=== PATIENT | female | born 1995 | race Caucasian/White ===

== ENCOUNTER → 2020-11-14 10:56 | Outpatient (BNVA) | payer OTHER, SELFPAY | PROVIDERS: Visit Provider Family Medicine | DX: Z13.6 Encounter for screening for cardiovascular disorders (principal); N94.12 Deep dyspareunia | CPT/HCPCS: 80053; 80061; 85025 ==

== ENCOUNTER → 2020-12-20 00:01 | Outpatient (BNVA) | payer OTHER, SELFPAY | PROVIDERS: PCP Family Medicine; Visit Provider Nurse Practitioner Women's Health | DX: Z12.4 Encounter for screening for malignant neoplasm of cervix (principal) | CPT/HCPCS: 88175 ==

== ENCOUNTER → 2023-09-06 08:39 | Outpatient (BNVA) | payer OTHER, SELFPAY | PROVIDERS: PCP Family Medicine; Visit Provider Nurse Practitioner Women's Health | DX: Z32.01 Encounter for pregnancy test, result positive (principal) | CPT/HCPCS: 81025 ==

== ENCOUNTER → 2023-10-16 11:05 | Outpatient (BNVA) | payer OTHER, SELFPAY | PROVIDERS: PCP Family Medicine; Visit Provider Obstetrics & Gynecology | DX: Z34.91 Encounter for supervision of normal pregnancy, unspecified, first trimester (principal); Z3A.09 9 weeks gestation of pregnancy | CPT/HCPCS: 76801 ==

== ENCOUNTER → 2023-10-25 12:36 | Outpatient (BNVA) | payer OTHER, SELFPAY | PROVIDERS: PCP Family Medicine; Visit Provider Obstetrics & Gynecology | DX: Z34.90 Encounter for supervision of normal pregnancy, unspecified, unspecified trimester (principal); Z3A.00 Weeks of gestation of pregnancy not specified | CPT/HCPCS: 80307; 84315; 85025; 86592; 86762; 86803; 86850; 86900; 87086; 87340; 87806 ==

== ENCOUNTER → 2023-11-08 14:00 | Outpatient (BNVA) | payer OTHER, SELFPAY | PROVIDERS: PCP Family Medicine; Visit Provider Obstetrics & Gynecology | DX: Z34.02 Encounter for supervision of normal first pregnancy, second trimester (principal) | CPT/HCPCS: 82950; 84315; 87491; 87591; 88175 ==

== ENCOUNTER → 2023-12-09 08:29 | Outpatient (BNVA) | payer OTHER, SELFPAY | PROVIDERS: PCP Family Medicine; Visit Provider Obstetrics & Gynecology | DX: O99.810 Abnormal glucose complicating pregnancy (principal); Z3A.00 Weeks of gestation of pregnancy not specified | CPT/HCPCS: 82951; 82952 ==

== ENCOUNTER → 2023-12-26 09:15 | Outpatient (BNVA) | payer OTHER, SELFPAY | PROVIDERS: PCP Family Medicine; Visit Provider Obstetrics & Gynecology | DX: Z34.02 Encounter for supervision of normal first pregnancy, second trimester (principal); Z3A.00 Weeks of gestation of pregnancy not specified | CPT/HCPCS: 76805 ==

== ENCOUNTER → 2024-01-21 15:30 | Outpatient (BNVA) | payer OTHER, SELFPAY | PROVIDERS: PCP Family Medicine; Visit Provider Obstetrics & Gynecology | DX: Z34.92 Encounter for supervision of normal pregnancy, unspecified, second trimester (principal); Z3A.24 24 weeks gestation of pregnancy | CPT/HCPCS: 76816 ==

== ENCOUNTER → 2024-01-24 07:44 | Outpatient (BNVA) | payer OTHER, SELFPAY | PROVIDERS: PCP Family Medicine; Visit Provider Nurse Practitioner Women's Health | DX: Z34.02 Encounter for supervision of normal first pregnancy, second trimester (principal); Z3A.00 Weeks of gestation of pregnancy not specified | CPT/HCPCS: 82950; 84315 ==

== ENCOUNTER → 2024-02-21 07:47 | Outpatient (BNVA) | payer OTHER, SELFPAY | PROVIDERS: PCP Family Medicine; Visit Provider Obstetrics & Gynecology | DX: O26.892 Other specified pregnancy related conditions, second trimester (principal); Z3A.00 Weeks of gestation of pregnancy not specified; Z67.91 Unspecified blood type, Rh negative | CPT/HCPCS: 84315; 85025; 86850 ==

== ENCOUNTER → 2024-04-03 08:12 | Outpatient (BNVA) | payer OTHER, SELFPAY | PROVIDERS: PCP Family Medicine; Visit Provider Nurse Practitioner Women's Health | DX: Z34.02 Encounter for supervision of normal first pregnancy, second trimester (principal); Z3A.00 Weeks of gestation of pregnancy not specified; R00.0 Tachycardia, unspecified | CPT/HCPCS: 84315; 84443; 85025 ==

== ENCOUNTER → 2024-04-17 07:54 | Outpatient (BNVA) | payer OTHER, SELFPAY | PROVIDERS: PCP Family Medicine; Visit Provider Obstetrics & Gynecology | DX: Z34.02 Encounter for supervision of normal first pregnancy, second trimester (principal); Z3A.00 Weeks of gestation of pregnancy not specified | CPT/HCPCS: 84315; 87081 ==

== ENCOUNTER → 2024-04-24 09:00 | Outpatient (BNVA) | payer OTHER, SELFPAY | PROVIDERS: PCP Family Medicine; Visit Provider Obstetrics & Gynecology | DX: Z34.90 Encounter for supervision of normal pregnancy, unspecified, unspecified trimester (principal); Z3A.00 Weeks of gestation of pregnancy not specified | CPT/HCPCS: 81000 ==

== ENCOUNTER → 2024-05-08 08:30 | Outpatient (BNVA) | payer OTHER, SELFPAY | PROVIDERS: PCP Family Medicine; Visit Provider Obstetrics & Gynecology | DX: Z34.90 Encounter for supervision of normal pregnancy, unspecified, unspecified trimester (principal); Z3A.00 Weeks of gestation of pregnancy not specified | CPT/HCPCS: 81000 ==

== ENCOUNTER 2024-05-14 17:11 | Inpatient (IN) | payer OTHER, SELFPAY ==
[2024-05-14] VITALS (17 sets, daily range): BP systolic 111–152; BP diastolic 55–81; PULSE 71–91; BMI 39.7
[2024-05-14 18:03] LABS: Basophils % 0.3 %; Eosinophils # 0.1 10^3/uL (0.0-0.8); Hematocrit 33.7 % (36-47); Lymphocytes # 0.9 10^3/uL (0.8-4.8); Lymphocytes % 13.7 %; Mean Corpuscular HGB Conc 33.5 g/dL (30-55); Mean Corpuscular Hemoglobin 27.4 pg (27-33); Mean Corpuscular Volume 81.8 fl (85-98); Mean Platelet Volume 10.8 fL (7.4-10.4); Monocytes # 0.7 10^3/uL (0.2-0.9); Monocytes % 10.8 %; Neutrophils # 4.63 10^3/uL (1.8-7.7); Neutrophils % 73.9 %; Nucleated Red Blood Cells % 0 %; Platelet Count 218 10^3/cmm (157-399); Red Blood Count 4.12 10^6/uL (3.85-5.65); Red Cell Distribution Width 13.5 % (12.1-15.1); White Blood Count 6.27 10^3/uL (3.29-11.43)
[2024-05-14] MEDS: miSOPROStol 100 mcg tablet 25 MCG VAGINAL (18:32)
[2024-05-14] MEDS: ampicillin 2,000 MG in sodium chloride 0.9% (plus) 50 ML 100 MG IV (19:23)
[2024-05-14] MEDS: dextrose 5%-lactated ringers 1,000 ML 125 ML IV (19:23)
[2024-05-14] MEDS: ampicillin 1,000 MG in sodium chloride 0.9% (plus) 50 ML 100 MG IV (23:46)
[2024-05-15] VITALS (77 sets, daily range): BP systolic 96–140; BP diastolic 53–85; PULSE 64–96; RESP 16–18; TEMP 36.7; O2SAT 100
[2024-05-15] MEDS: miSOPROStol 100 mcg tablet 25 MCG VAGINAL ×2 (00:43→06:07)
[2024-05-15] MEDS: ampicillin 1,000 MG in sodium chloride 0.9% (plus) 50 ML 100 MG IV ×5 (04:07→20:30)
[2024-05-15] MEDS: dextrose 5%-lactated ringers 1,000 ML 125 ML IV ×3 (07:52→21:00)
--- NOTE | 2024-05-15 10:50 | PM.OPHPUD ---
Labor & Delivery H&P Update Date of Procedure: May 15, 2024 Date H&P Performed: 05/08/24 H&P update information: I have reviewed H&P completed within last 30 days, I have examined patient prior to procedure and No changes to prior documentation Admission Diagnosis:
[2024-05-15] MEDS: oxytocin 30 UNIT/500 ML BAG IV (12:36)
--- NOTE | 2024-05-15 17:30 | ANES.PROC ---
Anesthesia Procedures Procedure/Date: 05/15/24 Epidural: Time Out Performed: Yes Consents Signed: Procedure Consent Consent: from patient, risks and benefits reviewed and patient agrees to proceed Lumbar Level: L3-L4 Epidural position: sitting Epidural procedure: sterile prep of area, 1% lidocaine to numb the area, 18 g needle, negative for paresthesia passed, neg for paresthesia, test dose given, 1.5% xylocaine 1:200k epi, placed PCEA, no systemic response, sterile dressing applied, L.U.D. no apparent complications and 0.2% Ropiavacaine @ mls/hr (13) Additional Comments: DIONISIO at 6, negative aspiration. taped at 12 at skin.
--- NOTE | 2024-05-15 19:40 | PM.OBGYPN ---
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 EFM- Cat 1. Will exam and AROM soon. Labor: Station: -2 Amniotic Membrane Status: Intact Monitor Mode: External Contraction Pattern: Regular Vitals/I&O/Wt Last Vital Signs Temp 98.0 F 05/15/24 08:00 Pulse 71 05/15/24 19:22 Resp 18 05/15/24 08:00 BP 119/68 05/15/24 19:22 Pulse Ox 100 05/15/24 17:36 O2 Del Method Room Air 05/14/24 17:54 05/15/24 05/15/24 05/15/24 06:59 14:59 22:59 Intake Total 1100 / 1100 699.967 / 699.967 3.5 / 703.467 Balance 1100 / 1100 699.967 / 699.967 3.5 / 703.467 Weight last 48 hrs Weight 108.409 kg Data 05/14/24 17:45 A&P Assessment and plan (1) Supervision of normal first : Continue care, AROM soon. Qualifiers: Trimester: second trimester Qualified Code(s): Z34.02 - Encounter for supervision of normal first , second trimester (2) Rh negative status during : Qualifiers: Trimester: second trimester Qualified Code(s): O26.892 - Other specified related conditions, second trimester; Z67.91 - Unspecified blood type, Rh negative (3) Abnormal glucose tolerance affecting , antepartum: (4) Tachycardia: Attestations Medical Necessity Statement*: Labor management Coding Level of Care Code Acute Code for Chg Fwd Diagnoses Encounter for supervision of normal first in second trimester Z34.02 Trimester: second trimester Rh negative status during in second trimester O26.892; Z67.91 Trimester: second trimester Abnormal glucose tolerance affecting , antepartum O99.810 Tachycardia R00.0
--- NOTE | 2024-05-15 20:04 | P.PN_ITS ---
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 AROM with clear fluid noted. EFM?category 1. Pitocin currently at 12 milliunits will continue to increase as long as tolerated by the baby based on EFM. Labor: Station: -2 Amniotic Membrane Status: Intact Monitor Mode: External Contraction Pattern: Regular Vitals/I&O/Wt Last Vital Signs Temp 98.0 F 05/15/24 08:00 Pulse 71 05/15/24 19:22 Resp 18 05/15/24 08:00 BP 119/68 05/15/24 19:22 Pulse Ox 100 05/15/24 17:36 O2 Del Method Room Air 05/14/24 17:54 05/15/24 05/15/24 05/15/24 06:59 14:59 22:59 Intake Total 1100 / 1100 699.967 / 699.967 3.5 / 703.467 Balance 1100 / 1100 699.967 / 699.967 3.5 / 703.467 Weight last 48 hrs Weight 108.409 kg Data 05/14/24 17:45 A&P Assessment and plan (1) 40 weeks gestation of : (2) Tachycardia: (3) Abnormal glucose tolerance affecting , antepartum: (4) Rh negative status during : Qualifiers: Trimester: second trimester Qualified Code(s): O26.892 - Other specified related conditions, second trimester; Z67.91 - Unspecified blood type, Rh negative (5) Supervision of normal first : Qualifiers: Trimester: second trimester Qualified Code(s): Z34.02 - Encounter for supervision of normal first , second trimester Plan Continue present care. Attestations 2 Medical Necessity Statement*: Management of labor Coding Level of Care Code Acute Code for Chg Fwd Diagnoses 40 weeks gestation of Z3A.40 Tachycardia R00.0 Abnormal glucose tolerance affecting , antepartum O99.810 Rh negative status during in second trimester O26.892; Z67.91 Trimester: second trimester Encounter for supervision of normal first in second trimester Z34.02 Trimester: second trimester
[2024-05-15] MEDS: ROPivacaine syringe 100 MG/50 ML SYRINGE 13 MG EPIDURAL (21:09)
--- NOTE | 2024-05-15 23:49 | P.PN_ITS ---
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 Cx- Ant Lip/-1 EFM- Cat 1 Ctx q 2-4 Labor: Station: 0 Amniotic Membrane Status: Intact Monitor Mode: E xternal Contraction Pattern: Regular Vitals/I&O/Wt Last Vital Signs Temp 98.0 F 05/15/24 19:59 Pulse 88 05/15/24 23:38 Resp 16 05/15/24 17:31 BP 99/57 05/15/24 23:38 Pulse Ox 100 05/15/24 17:36 O2 Del Method Room Air 05/14/24 17:54 05/15/24 05/15/24 05/16/24 14:59 22:59 06:59 Intake Total 699.967 / 699.967 653.5 / 1353.467 Balance 699.967 / 699.967 653.5 / 1353.467 Weight last 48 hrs Weight 108.409 kg Physical Exam 2 Urinary Catheter Management: Jameson: Cath Placed During This Visit: yes Urinary Catheter Date of Insertion: 05/15/24 Urinary Catheter Time of Insertion: 17:45 Data 05/14/24 17:45 A&P Assessment and plan (1) 40 weeks gestation of : (2) Abnormal glucose tolerance affecting , antepartum: (3) Rh negative status during : Qualifiers: Trimester: second trimester Qualified Code(s): O26.892 - Other specified related conditions, second trimester; Z67.91 - Unspecified blood type, Rh negative (4) Supervision of normal first : Qualifiers: Trimester: second trimester Qualified Code(s): Z34.02 - Encounter for supervision of normal first , second trimester Plan continue care Attestations 2 Medical Necessity Statement*: Labor management Coding Level of Care Code Acute Code for Chg Fwd Diagnoses 40 weeks gestation of Z3A.40 Abnormal glucose tolerance affecting , antepartum O99.810 Rh negative status during in second trimester O26.892; Z67.91 Trimester: second trimester Encounter for supervision of normal first in second trimester Z34.02 Trimester: second trimester
[2024-05-16] VITALS (45 sets, daily range): BP systolic 80–157; BP diastolic 57–83; PULSE 65–116; RESP 16–18; TEMP 36.6–36.8; O2SAT 94–100
[2024-05-16] MEDS: ampicillin 1,000 MG in sodium chloride 0.9% (plus) 50 ML 100 MG IV ×2 (01:00→06:17)
--- NOTE | 2024-05-16 01:58 | PC.NURSE ---
This RN titrated pitocin up at 0157 from 12mu/min to 14mu/minute. Pitocin was set at 12 mu/min when this RN received patient at shift change. Pitocin titration before shift change not documented.
[2024-05-16] MEDS: ROPivacaine syringe 100 MG/50 ML SYRINGE 13 MG EPIDURAL ×2 (02:15→05:48)
[2024-05-16] MEDS: dextrose 5%-lactated ringers 1,000 ML 125 ML IV ×2 (04:17→14:05)
--- NOTE | 2024-05-16 08:00 | ANE.PACU2 ---
Inpatient post-anesthesia follow up: Airway intact: Yes Vital signs: Temperature 98.2 F Pulse Rate 97 Respiratory Rate 17 Blood Pressure 124/73 Pulse Oximetry 96 Oxygen Delivery Me thod Room Air Oxygen Flow Rate 2 Fraction of Inspir ed Oxygen Hydration adequate: Yes Nausea and vomiting: No Pain level: 1 Mental status: Baseline Epidural Start/End: Epidural Start Date: 05/15/24 Epidural Start Time: 17:10 Epidural End Date: 05/16/24 Epidural End Time: 10:04
[2024-05-16] MEDS: lactated ringers 1,000 ML 999 ML IV (08:16)
--- NOTE | 2024-05-16 08:21 | P.PN_ITS ---
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 Exam indicates pt has narrow pelvis and moderate amount of perineal swelling. Discussed possible Forcep assisted delivery but increased risk of failure with her narrow pelvis and possible injury to baby, so I advise her of need to proceed with C/S delivery. Risk and benefits reviewed to include infection, bleeding and injury to pelvic organs, Pt and FOB understand and consents signed. Labor: Station: 0 Amniotic Membrane Status: Intact Monitor Mode: E xternal Contraction Pattern: Regular Vitals/I&O/Wt Last Vital Signs Temp 98.0 F 05/15/24 19:59 Pulse 73 05/16/24 08:06 Resp 16 05/15/24 17:31 BP 132/68 05/16/24 08:06 Pulse Ox 100 05/15/24 17:36 O2 Del Method Room Air 05/14/24 17:54 05/15/24 05/16/24 05/16/24 22:59 06:59 14:59 Intake Total 1703.5 / 2403.467 1148.017 / 3551.484 Balance 1703.5 / 2403.467 1148.017 / 3551.484 Weight last 48 hrs Weight 108.409 kg Physical Exam 2 Urinary Catheter Management: Jameson: Cath Placed During This Visit: yes Urinary Catheter Date of Insertion: 05/15/24 Urinary Catheter Time of Insertion: 17:45 Data 05/14/24 17:45 A&P Assessment and plan (1) 40 weeks gestation of : (2) Abnormal glucose tolerance affecting , antepartum: (3) Rh negative status during : Qualifiers: Trimester: second trimester Qualified Code(s): O26.892 - Other specified related conditions, second trimester; Z67.91 - Unspecified blood type, Rh negative Plan Proceed to delivery by c/section. Surgery crew called. Attestations 2 Medical Necessity Statement*: management of labor. Coding Level of Care Code Acute Code for Chg Fwd Diagnoses 40 weeks gestation of Z3A.40 Abnormal glucose tolerance affecting , antepartum O99.810 Rh negative status during in second trimester O26.892; Z67.91 Trimester: second trimester
[2024-05-16] MEDS: famotidine 20 mg/2 mL INJ IVP ×2 (08:26)
[2024-05-16] MEDS: metoclopramide 5 mg/mL SDV 2 mL 10 MG IV (08:26)
[2024-05-16] MEDS: ceFAZolin 2,000 MG in sodium chloride 0.9% (plus) 50 ML 100 MG IV (08:27)
[2024-05-16] MEDS: citric acid-sodium citrate 30 mL UDC PO (08:27)
--- NOTE | 2024-05-16 08:56 | P.ANESUD_ITS ---
Pre-Anesthetic Update Pre-Anesthetic Assessment: Date of Surgery/Procedure: 05/16/24 Preop Cindi gnosis: Failure to Progress Proposed Procedure: C. Section Any changes to Pre-Anesthetic Assessment?: No Labs Last 48hrs: Short CBC 05/14/24 Range/Units 17:45 WBC 6.27 (3.29-11.43) 10^ 3/uL Hgb 11.30 (11.27-16.99) g/ dL Hct 33.7 L (36-47) % MCV 81.8 L (85-98) fl Plt Count 218 (157-399) 10^3/c mm Neut % (Auto) 73.9 % Neut # (Auto) 4.63 (1.8-7.7) 10^3/u L Blood Bank 05/14/24 17:45 Blood Type A Negative Rho(D) Type Rh negative Antibody Screen Negative Vitals: Temperature 98.0 F 05/16/24 07:00 Temperature Source Oral 05/16/24 07:00 Pulse Rate 84 05/16/24 08:21 Pulse Rhythm Regular 05/15/24 20:00 Pulse Strength 3+ Normal 05/15/24 20:00 Respiratory Rate 18 05/16/24 07:00 Respiratory Effort Spontaneous, Non- Labored 05/14/24 17:54 Respiratory Depth Normal 05/14/24 17:54 Respiratory Patter n Normal 05/14/24 17:54 Blood Pressure 116/71 05/16/24 08:36 Pulse Oximetry 100 05/15/24 17:36 Oxygen Delivery Me thod Room Air 05/14/24 17:54 Cardiac Studies: No Data to Display
--- NOTE | 2024-05-16 09:10 | PC.NURSE ---
notified of blood tinged urine
--- NOTE | 2024-05-16 09:15 | PC.NURSE ---
This RN performed straight cath at 0535 with 14 faroese straight catheter due to prolonged time pushing after removal of original indwelling urinary catheter. 100 ml drained from bladder. This RN assisted by Liz Arnold RN at bedside.
--- NOTE | 2024-05-16 09:44 | PC.NURSE ---
patient pushing in closed knee position
--- NOTE | 2024-05-16 10:16 | PM.OP ---
Operative Report Date of procedure: May 16, 2024 Pre-op diagnosis: 40-week IUP Failure to descend Rh- status Abnormal glucose tolerance affecting Post-op diagnosis: S/p primary section Procedure done: Primary low-transverse section with T extension Specimens removed/disposition: Placenta Surgeon: Karuna Groves DO Estimated blood loss (mL): 500 Urine output: 300ml blood tinged Findings: Viable male Condition: stable Brief History: 28-year-old female G1, P1 admitted to labor and delivery for cervical ripening and induction. Patient progressed to complete dilatation and pushed for several hours and was given an extended pushing time due to desire for . After extended time baby fell to the send past +1 station. Pelvic exam revealed a narrow pelvis therefore instrumentation was not attempted. Patient was counseled on proceeding with primary section delivery. Procedure: After consents were signed patient was transported to surgical suite. Her epidural was redosed and level found to be adequate. Patient's abdomen was prepped and draped in the standard fashion. A Pfannenstiel incision was made 2 cm above the pubic bone and extended to the fascia. Several areas in the subcu fat were cauterized for hemostatic purposes. The fascia was incised and the incision lateralized. The rectus muscles entered in the midline and the peritoneum opened bluntly. A bladder flap was created with Metzenbaums and pickups and displaced with the bladder blade. A low transverse uterine incision was made with a knife and extended laterally. Moderate meconium stained fluid was encountered. With the baby's head being at +1 station and attempt to flip the baby and delivery from a breech presentation failed. Baby was then rotated and delivered vertex. The anterior followed by the posterior shoulders with the remainder the baby's body to follow was delivered. The oral pathways were bulb suction the cord clamped and handed off to waiting drafting technician. Cord blood and pH were drawn and handed off. Pitocin was added to the current infusing IV in a bolus manner the uterus was exteriorized and wiped clean with a moist lap sponge, after the placenta was delivered. The uterine incision was closed with 0 Vicryl with a running interlocking stitch. A second layer of 0 Vicryl was used for hemostatic purposes. The T extension was closed with 0 Vicryl with good approximation. The incision was inspected and found to be hemostatically intact. The posterior gutters were cleaned with a moist lap sponge as well as the sidewalls. The uterus was replaced in the abdomen the muscle and peritoneum closed with 2-0 Vicryl. The fascia was then closed with 0 Vicryl in a running stitch. The subcu fat approximated with 2-0 Vicryl followed by closure of the skin with 4-0 Vicryl. Needle instrument sponge count was correct x 2 the skin was cleansed and a pressure dressing applied. Patient is awake and in stable and satisfactory condition
[2024-05-16] MEDS: ketorolac 30 mg/mL INJ IVP ×2 (16:09→21:31)
[2024-05-16] MEDS: ondansetron 2 mg/ML SDV 2 mL 4 MG IVP (17:11)
--- NOTE | 2024-05-16 17:33 | PC.NURSE ---
AROUND 1600 PATIENT HAD A LARGE EMESIS OF JUST CLEAR FLUID, SHE WAS NOT NAUSATED PRIOR TO THROWING UP, IT JUST HIT HER. THEN AT 1700 WE GOT UP TO WALK AND IT HIT HER AGAIN AND SHE THROW UP LARGE AMOUNT OF CLEAR FLUID ZOFRAN GIVEN
[2024-05-16] MEDS: docusate sodium 100 mg Capsule PO (20:18)
[2024-05-16 22:20] LABS: Hematocrit 27.6 % (36-47); Mean Corpuscular Hemoglobin 27.4 pg (27-33); Mean Corpuscular Volume 83.1 fl (85-98); Mean Platelet Volume 10.5 fL (7.4-10.4); Platelet Count 214 10^3/cmm (157-399); Red Blood Count 3.32 10^6/uL (3.85-5.65); Red Cell Distribution Width 13.8 % (12.1-15.1); White Blood Count 12.73 10^3/uL (3.29-11.43)
[2024-05-17 04:00] VITALS: BP 110/72; PULSE 76; RESP 16; TEMP 36.6; O2SAT 97
[2024-05-17] MEDS: ferrous sulfate EC 325 mg Tablet PO ×2 (07:42→19:20)
[2024-05-17] MEDS: docusate sodium 100 mg Capsule PO ×2 (07:42→19:20)
[2024-05-17] MEDS: HYDROcodone-acetaminophen 5-325 mg Tablet PO ×3 (07:43→19:19)
[2024-05-17 10:00] VITALS: BP 116/77; PULSE 96; RESP 18; TEMP 36.9
--- NOTE | 2024-05-17 11:12 | P.PN_ITS ---
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 Patient is ambulating, tolerating regular diet and voiding. She denies headaches blurred vision, shortness of breath or chest pain. Postop expectations reviewed. Labor: Station: 0 Amniotic Membrane Status: Intact Monitor Mode: E xternal Contraction Pattern: Irregular Vitals/I&O/Wt Last Vital Signs Temp 97.8 F 05/17/24 04:00 Pulse 76 05/17/24 04:00 Resp 16 05/17/24 04:00 BP 110/72 05/17/24 04:00 Pulse Ox 97 05/17/24 04:00 O2 Del Method Room Air 05/17/24 04:00 O2 Flow Rate 2 05/16/24 05:54 05/16/24 05/17/24 05/17/24 22:59 06:59 14:59 Intake Total 800 / 1800 Output Total 1100 / 1100 1375 / 2475 Balance -300 / 700 -1375 / -675 Physical Exam 2 Const: COMMON NORMALS: no acute distress, patient oriented x3, healthy appearing, alert and well nourished Back/Pelvis: OTHER: Abdomen?soft, fundus below umbilicus. Incision clean dry and intact. Lochia?light. Extremity: COMMON NORMALS: normal to inspection, no clubbing, cyanosis or edema and no calf tenderness Neuro: COMMON NORMALS: patient oriented x3 SENSORIUM/ORIENTATION: Yes alert Urinary Catheter Management: Jameson: Cath Placed During This Visit: yes, but has since been removed by the nurse Reason for Continuing Indwelling Catheter: Decision to DC Catheter Urinary Catheter Date of Insertion: 05/15/24 Urinary Catheter Time of Insertion: 17:45 Date Urinary Catheter Removed: 05/17/24 Time Urinary Catheter Discontinued: 05:15 Data 05/16/24 22:04 A&P Assessment and plan (1) S/P primary low transverse : A. Acute blood loss anemia?asymptomatic (2) 40 weeks gestation of : (3) Abnormal glucose tolerance affecting , antepartum: (4) Rh negative status during : Qualifiers: Trimester: second trimester Qualified Code(s): O26.892 - Other specified related conditions, second trimester; Z67.91 - Unspecified blood type, Rh negative (5) Supervision of normal first : Qualifiers: Trimester: second trimester Qualified Code(s): Z34.02 - Encounter for supervision of normal first , second trimester Attestations 2 Medical Necessity Statement*: Management of labor and care Coding Level of Care Code Acute Code for Chg Fwd Diagnoses S/P primary low transverse Z98.891 40 weeks gestation of Z3A.40 Abnormal glucose tolerance affecting , antepartum O99.810 Rh negative status during in second trimester O26.892; Z67.91 Trimester: second trimester Encounter for supervision of normal first in second trimester Z34.02 Trimester: second trimester
[2024-05-17 14:45] VITALS: BP 134/78; PULSE 98; RESP 16; TEMP 36.8
[2024-05-17] MEDS: ibuprofen 800 mg tablet PO ×2 (14:55→21:38)
[2024-05-17 15:00] VITALS: BP 134/78; PULSE 98; RESP 18; TEMP 36.8
[2024-05-17 21:38] VITALS: BP 118/62; PULSE 79; RESP 16; TEMP 36.8; O2SAT 98
[2024-05-18 04:12] VITALS: BP 122/72; PULSE 98; RESP 16; O2SAT 96
[2024-05-18] MEDS: HYDROcodone-acetaminophen 5-325 mg Tablet PO ×2 (06:21→10:22)
[2024-05-18 09:45] VITALS: BP 129/70; PULSE 94; RESP 17; TEMP 36.8
[2024-05-18] MEDS: ibuprofen 800 mg tablet PO (10:22)
[2024-05-18] MEDS: docusate sodium 100 mg Capsule PO (10:22)
[2024-05-18] MEDS: ferrous sulfate EC 325 mg Tablet PO (10:23)
--- NOTE | 2024-05-18 11:43 | P.DS_ITS ---
Discharge Providers CERTIFIED RESPIRATORY THERAPIST Date of Admission: 05/14/24 17:11 Date of Discharge: 05/18/24 Attending Provider at Admission: Rupert Prater MD Attending Provider at Discharge: Rupert Prater MD Primary Care Provider: Lisa Trujillo DO Diagnoses at Discharge Discharge Diagnosis (1) S/P primary low transverse : Details from hospital stay: 28yo female s/p Primary LTCS for Arrest of descent after IOL. Pt tolerating regular diet and voiding has passed a spontaneous stool. She denies headaches, blurred vision, nausea or vomiting, shortness of breath or chest pain. Her pain is relieved with ibuprofen and Tylenol. Patient is ambulating in room and hallway without assistance. Discussed discharge expectations and orders, encouraged increased fluids, green vegetables and fruit to be included in a healthy diet. Patient to shower only keeping incision clean and dry. No heavy lifting pushing pulling no sexual intercourse x 6 weeks. Patient is encouraged to continue her vitamins and iron daily and as long as she is breast-feeding. Vital signs stable, afebrile. Abdomen?soft, uterus well below umbilicus. Incision clean dry intact Extremities?negative Homans' sign Status: Acute (2) 40 weeks gestation of : Status: Acute (3) Abnormal glucose tolerance affecting , antepartum: Status: Inactive (4) Rh negative status during : Status: Acute Qualifiers: Trimester: second trimester Qualified Code(s): O26.892 - Other specified related conditions, second trimester; Z67.91 - Unspecified blood type, Rh negative (5) Supervision of normal first : Status: Acute Qualifiers: Trimester: second trimester Qualified Code(s): Z34.02 - Encounter for supervision of normal first , second trimester Reason for Visit Reason for Visit: IOL Hospital Course Hospital Course See above hospital stay under discharge Information Peripartum Data: Infant Delivery Method: complications: none Physical Exam Back/Pelvis: OTHER: Abdomen?soft, fundus firm well below umbilicus. Incision clean dry intact Urinary Catheter Management: Jameson: Cath Placed During This Visit: yes, but has since been removed by the nurse Reason for Continuing Indwelling Catheter: Decision to DC Catheter Urinary Catheter Date of Insertion: 05/15/24 Urinary Catheter Time of Insertion: 17:45 Date Urinary Catheter Removed: 05/17/24 Time Urinary Catheter Discontinued: 05:15 History History History 1 Term 1 0 Miscarriages/Ectopic 0 Living Children 1 Discharge Data Studies Completed and Pending Laboratory Results WBC 12.73 10^3/uL (3.29-11.43) H 05/16/24 22:04 RBC 3.32 10^6/uL (3.85-5.65) L 05/16/24 22:04 Hgb 9.10 g/dL (11.27-16.99) L 05/16/24 22:04 Hct 27.6 % (36-47) L 05/16/24 22:04 MCV 83.1 fl (85-98) L 05/16/24 22:04 MCH 27.4 pg (27-33) 05/16/24 22:04 MCHC 33.0 g/dL (30-55) 05/16/24 22:04 RDW 13.8 % (12.1-15.1) 05/16/24 22:04 Plt Count 214 10^3/cmm (157-399) 05/16/24 22:04 MPV 10.5 fL (7.4-10.4) H 05/16/24 22:04 Neut % (Auto) 73.9 % 05/14/24 17:45 Lymph % (Auto) 13.7 % 05/14/24 17:45 Darke % (Auto) 10.8 % 05/14/24 17:45 Eos % (Auto) 1.0 % 05/14/24 17:45 Baso % (Auto) 0.3 % 05/14/24 17:45 Neut # (Auto) 4.63 10^3/uL (1.8-7.7) 05/14/24 17:45 Lymph # (Auto) 0.9 10^3/uL (0.8-4.8) 05/14/24 17:45 Darke # (Auto) 0.7 10^3/uL (0.2-0.9) 05/14/24 17:45 Eos # (Auto) 0.1 10^3/uL (0.0-0.8) 05/14/24 17:45 Baso # (Auto) 0.0 10^3/uL (0.0-0.1) 05/14/24 17:45 Nucleated RBC % (auto) 0 % 05/14/24 17:45 Nucleated RBCs # 0.0 /100WBC 05/14/24 17:45 Blood Type A Negative 05/14/24 17:45 Rho(D) Type Rh negative 05/14/24 17:45 Antibody Screen Negative 05/14/24 17:45 Screen Negative (Negative) 05/16/24 22:04 Vitals Last Vital Signs Temp 98.2 F 05/17/24 21:38 Pulse 98 05/18/24 04:12 Resp 16 05/18/24 04:12 BP 122/72 05/18/24 04:12 Pulse Ox 96 05/18/24 04:12 O2 Del Method Room Air 05/18/24 04:12 O2 Flow Rate 2 05/16/24 05:54 Results Labs OB ([facility]): 2 Obstetrics US 01/21/24 Blood Type A Negative 05/14/24 Antibody Screen Negative 05/14/24 Hct 27.6 % (36-47) L 05/16/24 Hgb 9.10 g/dL (11.27-16.99) L 05/16/24 Rho(D) Type Rh negative 05/14/24 Plt Count 214 10^3/cmm (157-399) 05/16/24 Hep Bs Antigen Non-reactive (Nonreactive) 10/25/23 Hepatitis C Antibody Non-reactive (Nonreactive) 10/25/23 Rubella IgG Antibody 132.6 IU/mL (0.0-10.0) H 10/25/23 RPR Nonreactive (Nonreactive) 10/25/23 HIV 1&2 Ab & HIV 1 Ag Non-reactive (Non-Reactiv) 10/25/23 TSH 1.14 uIU/mL (0.27-4.20) 04/03/24 C.trachomatis RNA (TMA) Not detected (NOT DETECTED) N.gonorrhoeae RNA (TMA) Not detected (NOT DETECTED) Chlamydia/GC Comment See note 11/08/23 Glucose 1 Hr 50 gm 96 mg/dL (85-140) 01/24/24 Gest Glucose Tolerance mg/dL 12/09/23 HCG, Qual Positive (Negative) H 09/06/23 Urine Opiates Screen Negative ng/mL (Negative) 10/25/23 Ur Barbiturates Screen Negative ng/mL (Negative) 10/25/23 Ur Phencyclidine Scrn Negative ng/mL (Negative) 10/25/23 Ur Amphetamines Screen Negative ng/mL (Negative) 10/25/23 U Benzodiazepines Scrn Negative ng/mL (Negative) 10/25/23 Urine Cocaine Screen Negative ng/mL (Negative) 10/25/23 U Marijuana (THC) Screen Negative ng/mL (Negative) 10/25/23 Micro Urine Specimen 10/25/23 Pap Smear Interpret See note 11/08/23 Discharge Plan Discharge Patient Disposition: Home Condition: Stable Prescriptions: No Action 1 cap PO DAILY Discharge Orders: Discharge Order (Routine); Ordered 05/18/24 Ordered By: Karuna Groves Discharge Diet: Regular Discharge Activity: Increase activity as tolerated Patient Instructions: Depression (DC), Opioid Safety (DC), Preeclampsia and Eclampsia After Delivery (GEN), Hemorrhage (DC), OB WHC, OB Discharge Report, OB Food/Drug Interaction Guide, Opioid Safety, OB Home Care, Abnormal Bleeding Activity Restrictions/Additional Instructions: No heavy lifting pushing or pulling. No sexual intercourse x 6 weeks. Assessment: 1. S/p primary low-transverse section 2. Asymptomatic anemia?acute blood loss 3. Rh- status Plan of Treatment: DC to home for continued recovery. Follow-up in 2 weeks for postop visit Discharge Attestations CERTIFIED RESPIRATORY THERAPIST Time Spent in Discharge Care*: less than 30 min Coding Level of Care Code Acute Code for Chg Fwd Diagnoses S/P primary low transverse Z98.891 40 weeks gestation of Z3A.40 Abnormal glucose tolerance affecting , antepartum O99.810 Rh negative status during in second trimester O26.892; Z67.91 Trimester: second trimester Encounter for supervision of normal first in second trimester Z34.02 Trimester: second trimester
[2024-05-18 13:02] VITALS: BP 124/73; PULSE 97; RESP 17; TEMP 36.8
--- NOTE | 2024-05-18 13:05 | PC.NURSE ---
this nurse went into the discharge Plan tab and noticed pt did not have any prescriptions put in by , this nurse then asked if she sent any prescriptions in to any pharmacy and reported she went over with the patient to alternate between over the counter Ibuprofen and Tylenol. This nurse then reminded pt was a primary , she she went over medications to take over the counter.
[2024-05-18 13:08] VITALS: BP 124/73; PULSE 97; RESP 17; TEMP 36.8
== END 2024-05-18 13:10 | disposition home or self-care (01) | DRG 788 ==
LOC: OPOB 17:11 → OBGYN 17:11
PROVIDERS: Obstetrics & Gynecology; Admitting Provider Obstetrics & Gynecology; PCP Family Medicine; Visit Provider Obstetrics & Gynecology
PROC: 10D00Z1 Extraction of Products of Conception, Low, Open Approach (ICD-10-PCS; CPT 59514; principal; 2024-05-16 08:30)
DX: O32.4XX0 Maternal care for high head at term, not applicable or unspecified (principal); O99.892 Other specified diseases and conditions complicating childbirth; R00.0 Tachycardia, unspecified; O99.814 Abnormal glucose complicating childbirth; O77.0 Labor and delivery complicated by meconium in amniotic fluid; O32.1XX0 Maternal care for breech presentation, not applicable or unspecified; O48.0 Post-term pregnancy; Z3A.40 40 weeks gestation of pregnancy; Z37.0 Single live birth; Z67.11 Type A blood, Rh negative
CPT/HCPCS: 36415; 51702; 59025; 59409; 85025; 85027; 85460; 86850; 86900; 90384; 96374; 96376; 98960; 99211; J0290; J0690; J1885; J2274; J2371; J2405; J2590; J2765; J2795; J3010; J3490; J7120; J7121

== ENCOUNTER → 2024-05-30 16:51 | Outpatient (BNVA) | payer OTHER, SELFPAY | PROVIDERS: PCP Family Medicine; Visit Provider Emergency Medicine | DX: R30.0 Dysuria (principal) | CPT/HCPCS: 81000 ==